=== PATIENT | female | born 1970 | race Caucasian/White ===

== ENCOUNTER 2016-08-31 11:33 | Inpatient (IN) | payer MEDICAID ==
[~2016-08-31] VITALS: Ht 167.6 cm; Wt 76.1 kg
[2016-08-31 12:17] LABS: BASOPHILS 0 % (0-2); EOSINOPHILS 0.1 % (0-7); HEMATOCRIT 35.6 % (36.0-48.0); HEMOGLOBIN 12.8 g/dL (12-16); IMMATURE GRANULOCYTES 0.5 % (0-5); LYMPHOCYTES 7.4 % (15-50); MCH 35.9 pg (26.0-34.0); MCV 99.7 fL (80.0-100.0); MEAN PLATELET VOLUME 11.6 fL (7.4-10.4); PLATELET COUNT 106 10x3/uL (130-400); RBC 3.57 10x6/uL (4.00-5.40); RDW 11.3 % (11.5-14.5); WBC 7.8 10x3/uL (4.8-10.8)
[2016-08-31 12:49] LABS: ALBUMIN 4.4 g/dL (3.4-5.0); BILIRUBIN - TOTAL 5.16 mg/dL (0.2-1.3); CARBON DIOXIDE 22.8 mmol/L (21.0-32.0); CREATININE - SERUM 4.5 mg/dL (0.6-1.3); PROTEIN - SERUM 8.3 g/dL (6.4-8.2)
[2016-08-31 12:52] LABS: ANION GAP 22.3 mmol/L (8-16); POTASSIUM - SERUM 2.1 mmol/L (3.5-5.1)
[2016-08-31 13:43] LABS: CREATINE KINASE 1217 UL (21-215)
[2016-08-31 13:44] LABS: CKMB 17.1 U/L (0.0-3.6)
[2016-08-31 14:38] LABS: APPEARANCE TURBID (CLEAR); BILIRUBIN NEGATIVE (NEGATIVE); COLOR YELLOW (YELLOW); GLUCOSE NEGATIVE (NEGATIVE); KETONE NEGATIVE (NEGATIVE); LEUKOCYTE ESTERASE 2+ (NEGATIVE); NITRITE POSITIVE (NEGATIVE); PROTEIN 2+ mg/dL (NEGATIVE); RED CELLS - URINE 0-5 /hpf (0-5); SPECIFIC GRAVITY 1.015 (1.005-1.020)
[2016-08-31 14:39] LABS: BACTERIA MANY /hpf (NONE SEEN); EPITHELIAL CELLS 0-5 /hpf (0-5); GRANULAR CAST 0-5 /lpf (NONE SEEN); HYALINE CAST OCC /lpf (NONE SEEN); MUCUS <1+ /lpf (NONE SEEN)
[2016-08-31 14:46] LABS: UDS - AMPHET NEGATIVE QUAL (NEGATIVE); UDS - BARB NEGATIVE QUAL (NEGATIVE); UDS - BENZO NEGATIVE QUAL (NEGATIVE); UDS - COCAINE NEGATIVE QUAL (NEGATIVE); UDS - METH NEGATIVE QUAL (NEGATIVE); UDS - OPIATE NEGATIVE QUAL (NEGATIVE); UDS - PCP NEGATIVE QUAL (NEGATIVE); UDS - THC NEGATIVE QUAL (NEGATIVE)
[2016-08-31] MEDS ORDERED: PROTONIX40 MG PO (15:31)
[2016-08-31] MEDS ORDERED: LEXAPRO10 MG PO (15:31)
[2016-08-31] MEDS ORDERED: KLONOPIN0.5 MG PO (15:32)
[2016-08-31] MEDS ORDERED: ZOFRAN ODT4 MG/UDTAB PO (15:33)
[2016-08-31 16:15] LABS: MAGNESIUM - SERUM 1.2 mg/dL (1.8-2.4); PHOSPHOROUS 1.7 mg/dL (2.5-4.9)
[2016-08-31 16:19] VITALS: BP 127/81; BMI 25.5
--- NOTE | 2016-08-31 16:46 | NUR ---
PT AOX4 RESP EVEN AND NONLABORED ON ROOM AIR PT DENIES NEEDS AT THIS TIME FRIEND AT BEDSIDE. IV TO LEFT FOREARM PATENT AND INTACT PT HERE FOR FALL FOR THIS VISIT. PT HANDS TREMORS CONTINUALLY AT THIS TIME. SRX2 BED AT LOWEST SETTING CALL LIGHT WITHIN REACH WILL CONTINUE TO MONITOR
--- NOTE | 2016-08-31 19:00 | NUR ---
PATIENT SITTING UP IN BED WATCHING TV. HOB 40 DEGREES. PATIENT IS AWAKE AND ALERT BUT SLIGHTLY CONFUSED. RR EVEN AND UNLABORED. 0 S/S OF DISTRESS. STATES PAIN IS A 10/10 IN HER HEAD AND NECK. SHE STATES THAT SHE FELL AND "HIT HER HEAD HARD." NO IMAGING HAS BEEN DONE ON HEAD OR NECK. IV TO RIGHT FA PATENT WITH NO REDNESS OR SWELLING. TELEMETRY ON. SCD'S ON. DAVID MAT ON. SRX2. BED LOW. CALL LIGHT WITHIN REACH.
[2016-08-31 20:00] VITALS: BP 126/79
--- NOTE | 2016-08-31 20:30 | NUR ---
SPOKE WITH DR. VAZ. NOTIFIED HER OF PATIENT'S PAIN DUE TO FALL. CT'S ORDERED.
--- NOTE | 2016-08-31 22:10 | NUR ---
PATIENT TAKEN DOWN TO HAVE CT DONE, NOW BACK IN BED. NIGHTTIME MEDS GIVEN. PATIENT BEGINNING TO BECOME A BIT RESTLESS AND TREMORS GETTING WORSE. ATIVAN GIVEN PER ORDER. PATIENT'S BOYFRIEND STATED THAT HE WOULD STAY WITH PATIENT BECAUSE SHE HAS BEEN TRYING TO GET OUT OF BED. 20 MEQ KCL PO, 400 MG MAG PO, AND 1 PACKET NEUTRAPHOS GIVEN PER PROTOCOL.
[2016-09-01] VITALS (7 sets, daily range): BP systolic 101–139; BP diastolic 61–102; Ht 167.6 cm; Wt 76.1 kg
--- NOTE | 2016-09-01 00:05 | NUR ---
PATIENT BECOMING INCREASINGLY RESTLESS AND CONFUSED. SHE IS HALLUCINATING AND STILL ATTEMPTING TO GET OUT OF BED. ATIVAN GIVEN PER ORDER. WILL CONTINUE TO MONITOR.
--- NOTE | 2016-09-01 01:50 | NUR ---
PATIENT VERY RESTLESS AND NOW AGITATED. BOYFRIEND AND MANDARIN TEACHER CANNOT KEEP HER IN THE BED. SHE IS PULLING OFF HER TELEMETRY AND STATING THAT SHE "IS GOING HOME." SPOKE WITH DR. GONZALEZ IN ER. ONE TIME ORDER 50 MG PO LIBRIUM AND 2MG IV ATIVAN GIVEN. WILL REASSESS.
--- NOTE | 2016-09-01 03:00 | NUR ---
PATIENT SLEEPING WITH NO DISTRESS NOTED. ADDITIONAL DOSES OF MAG, KCL, AND PHOS NOT GIVEN BECAUSE PATIENT FINALLY RESTING AND DID NOT WANT TO DISTURB. WILL RESTART TREATMENT PER PROTOCOL IN AM. HAVE NOT BEEN ABLE TO COLLECT URINE CULTURE BECAUSE EVERY TIME PATIENT VOIDED, SHE HAD LOOSE BM IN HAT. WILL PASS ON TO DAY SHIFT.
[2016-09-01 04:30] LABS: BASOPHILS 0.2 % (0-2); EOSINOPHILS 1.8 % (0-7); HEMOGLOBIN 10.4 g/dL (12-16); IMMATURE GRANULOCYTES 0.5 % (0-5); LYMPHOCYTES 23.4 % (15-50); MCH 36.2 pg (26.0-34.0); MCHC 36.6 g/dL (31.0-37.0); MEAN PLATELET VOLUME 11.2 fL (7.4-10.4); MONOCYTES 16.2 % (2-11); NEUTROPHILS 57.9 % (40-80); PLATELET COUNT 88 10x3/uL (130-400); RBC 2.87 10x6/uL (4.00-5.40); RDW 11.3 % (11.5-14.5)
[2016-09-01 04:33] LABS: HEMATOCRIT 28.4 % (36.0-48.0); WBC 5.7 10x3/uL (4.8-10.8)
[2016-09-01 06:01] LABS: PLATELET ESTIMATE DECREASED
[2016-09-01 06:27] LABS: ALBUMIN 3.4 g/dL (3.4-5.0); BILIRUBIN - TOTAL 4.06 mg/dL (0.2-1.3); CARBON DIOXIDE 22.6 mmol/L (21.0-32.0); CREATININE - SERUM 3.5 mg/dL (0.6-1.3); PROTEIN - SERUM 6.3 g/dL (6.4-8.2)
[2016-09-01 06:29] LABS: ANION GAP 17.5 mmol/L (8-16); MAGNESIUM - SERUM 2.2 mg/dL (1.8-2.4)
[2016-09-01 06:31] LABS: PHOSPHOROUS 0.8 mg/dL (2.5-4.9); POTASSIUM - SERUM 2.1 mmol/L (3.5-5.1)
--- NOTE | 2016-09-01 07:50 | NUR ---
PATIENT AWAKE AND AGITATED AGAIN, ATTEMPTING TO GET OUT OF BED. ATIVAN GIVEN. MORNING MED GIVEN. ELECTROLYTES TREATED PER PROTOCOL.
--- NOTE | 2016-09-01 08:00 | NUR ---
ASSESSMENT PER FLOW SHEET.PT WITHOUT DISTRESS,BUT VERY CONFUSED.FALL PREVENTION IN PLACE.CALL LIGHT IN REACH
--- NOTE | 2016-09-01 09:30 | NUR ---
PT VERY ANXIOUS AND TRYING TO GET OUT OF BED.FALL PREVENTION IN PLACE.MEDS ORDERED PER MAR.DOOR OPEN
--- NOTE | 2016-09-01 12:41 | NUR ---
MORE CALM.FAMILY HAS BEEN TO VISIT.DOOR OPEN TO MONITOR
--- NOTE | 2016-09-01 14:49 | NUR ---
FINALLY RESTING WITHOUT DISTRESS.DOOR OPEN TO MONITOR.DAVID MAT IN PLACE AND FUNCTIONING.
--- NOTE | 2016-09-01 16:09 | NUR ---
AWAKENS INT,WITHOUT DISTRESS AT PRESENT.MONITOR FOR NEEDS
--- NOTE | 2016-09-01 17:58 | NUR ---
HAS EATEN DINNER AND IS AWAKE.MORE CALM THIS AFTERNOON. FALL PREVENTION IN PLACE.DOOR OPEN.CONT PLAN OF CARE
--- NOTE | 2016-09-01 18:25 | NUR ---
PT ANXIOUS AND OUT OF BED.BED ALARM SOUNDING.PT FOUND IN FLOOR. IV PULLED OUT WITH CATH INTACT.
--- NOTE | 2016-09-01 18:45 | NUR ---
IV RESITED TO RIGHT WRIST X1 STICK ,20 G USING ASEPTIC TECH.PT HAS BEEN CLEANED AND BACK TO BED.SCRAPE NOTED TO RIGHT BACK.DR VAZ CALLED.
--- NOTE | 2016-09-01 19:35 | NUR ---
FAMILY BACK TO UNIT.FAMILY AWARE OF FALL.
[2016-09-02] VITALS: BP 117/77
[2016-09-02 02:09] LABS: ANION GAP 14.3 mmol/L (8-16); BILIRUBIN - TOTAL 3.19 mg/dL (0.2-1.3); CALCIUM 8.1 mg/dL (8.5-10.1); CARBON DIOXIDE 24.4 mmol/L (21.0-32.0); MAGNESIUM - SERUM 1.9 mg/dL (1.8-2.4); PROTEIN - SERUM 5.9 g/dL (6.4-8.2)
[2016-09-02 02:20] LABS: CREATININE - SERUM 1.8 mg/dL (0.6-1.3); PHOSPHOROUS 1.7 mg/dL (2.5-4.9)
[2016-09-02 02:21] LABS: POTASSIUM - SERUM 2.7 mmol/L (3.5-5.1)
[2016-09-02 02:24] LABS: BASOPHILS 0.9 % (0-2); EOSINOPHILS 3.5 % (0-7); HEMATOCRIT 29.1 % (36.0-48.0); HEMOGLOBIN 10.2 g/dL (12-16); IMMATURE GRANULOCYTES 0.9 % (0-5); LYMPHOCYTES 33.1 % (15-50); MCH 35.3 pg (26.0-34.0); MCHC 35.1 g/dL (31.0-37.0); MCV 100.7 fL (80.0-100.0); MEAN PLATELET VOLUME 10.6 fL (7.4-10.4); MONOCYTES 15.6 % (2-11); PLATELET COUNT 103 10x3/uL (130-400); RBC 2.89 10x6/uL (4.00-5.40); RDW 11.5 % (11.5-14.5); WBC 4.2 10x3/uL (4.8-10.8)
[2016-09-02 04:13] VITALS: BP 116/72
--- NOTE | 2016-09-02 07:45 | NUR ---
DAUGHTER AT BEDSIDE, DENIES NEEDS, BED LOWEST POSITION, CALL LIGHTI N LOUANN, WILL CONTINUE TO MONITOR
[2016-09-02 08:23] VITALS: BP 124/83
--- NOTE | 2016-09-02 10:20 | NUR ---
PT HERE FOR ETOH ABUSE PT DENIES NEEDS AT THIS TIME. IV TO RIGHT WRIST PATENT AND INTACT SRX2 BED IN LOWEST SETTING CALL LIGHT WITHIN REACH WILL CONTINUE TO MONITOR
[2016-09-02 12:55] VITALS: BP 127/70
[2016-09-02 16:14] VITALS: BP 96/62
[2016-09-02 19:00] VITALS: BP 117/77
--- NOTE | 2016-09-02 20:00 | NUR ---
REC'D IN BED AWAKE AND ALERT. RESP EVEN AND UNLABORED WITH NO DISTRESS NOTED. CAN VOICE NEEDS AND WANTS. NO C/O NOTED OF YET THIS SHIFT. ASSESSMENT COMPLETED. C/L IN REACH AT BEDSIDE.
--- NOTE | 2016-09-03 02:00 | NUR ---
PT IN BED WITH NO DISTRESS AT THIS TIME. RESPIRATIONS ARE EVEN AND UNLABORED. SIDE RAILS X 2. BED IS LOW. CALL LIGHT IS WITHIN REACH. DAVID MAT IS ON.
[2016-09-03 04:00] VITALS: BP 97/63
[2016-09-03 04:54] LABS: BASOPHILS 0.9 % (0-2); EOSINOPHILS 3.7 % (0-7); HEMATOCRIT 29.7 % (36.0-48.0); HEMOGLOBIN 10.3 g/dL (12-16); IMMATURE GRANULOCYTES 2.9 % (0-5); LYMPHOCYTES 35.5 % (15-50); MCH 35.8 pg (26.0-34.0); MCHC 34.7 g/dL (31.0-37.0); MEAN PLATELET VOLUME 10.4 fL (7.4-10.4); MONOCYTES 17.1 % (2-11); NEUTROPHILS 39.9 % (40-80); RBC 2.88 10x6/uL (4.00-5.40); RDW 11.7 % (11.5-14.5); WBC 4.6 10x3/uL (4.8-10.8)
[2016-09-03 04:59] LABS: MCV 103.1 fL (80.0-100.0); PLATELET COUNT 152 10x3/uL (130-400)
[2016-09-03 05:17] LABS: ALBUMIN 3.1 g/dL (3.4-5.0); ANION GAP 14.8 mmol/L (8-16); BILIRUBIN - TOTAL 2.4 mg/dL (0.2-1.3); CALCIUM 8.3 mg/dL (8.5-10.1); CARBON DIOXIDE 21.7 mmol/L (21.0-32.0); MAGNESIUM - SERUM 1.6 mg/dL (1.8-2.4); POTASSIUM - SERUM 3.5 mmol/L (3.5-5.1); PROTEIN - SERUM 5.9 g/dL (6.4-8.2)
[2016-09-03 05:19] LABS: CREATININE - SERUM 1.3 mg/dL (0.6-1.3); PHOSPHOROUS 1.2 mg/dL (2.5-4.9)
--- NOTE | 2016-09-03 05:48 | NUR ---
CONTINUE TO REST WELL THROUGH OUT THE NIGHT. DAUGHTER AT BEDSIDE. C/L IN REACH AT BEDSIDE.
--- NOTE | 2016-09-03 07:32 | NUR ---
A&O, DENIES NEEDS, CALL LIGHT IN REACH, WILL CONTINUE TO MONITOR
[2016-09-03 07:51] VITALS: BP 107/62
--- NOTE | 2016-09-03 10:02 | NUR ---
Patient Name: BAILEE SUNG Admission Status: ER Accout number: [id number] Admission Date: 08-31-2016 : 1970 Admission Diagnosis: Attending: PADMINI Current LOS: 3 Anticipated DC Date: 09-05-2016 Planned Disposition: Home Primary [place]: [place] [employer] [place] Discharge Planning Comments: CM MET WITH PATIENT REGARDING D/C NEEDS AND PLANS. PATIENT STATED HER FRIEND (EARLENE ALEXIS) WILL DRIVE HER HOME AT DISCHARGE. PATIENT STATED SHE HAS 7 STEPS W/RAILS TO ENTER HOME AND 1 FLIGHT W/RAILS INSIDE. PATIENT IS INDEPENDENT WITH HER CARE AND HAS A SHOWER CHAIR AT HOME. PATIENTS PCP IS DR. KAUR AND PHARMACY IS [facility] ON [address] [facility]. PATIENT REFUSED HOME HEALTH AT THIS TIME. CM WILL CONTINUE TO FOLLOW PATIENT WITH D/C NEEDS AND PLANS. PCP DR. NATASHA BULL ON [address] [facility] EARLENE ALEXIS (FRIEND) [phone] Water Tender: Zulma Mar Is the patient Alert and Oriented? Yes 0 * How many steps to enter\exit or inside your home? 7/1 FLIGHT 0 * PCP DR. KAUR 0 * Pharmacy [facility] [address] [facility] 0 * Preadmission Environment Home Alone 0 * ADLs Independent 0 * Equipment Shower Chair 0 * List name and contact numbers for known caregivers / representatives who currently or will assist patient after discharge: EARLENE ALEXIS (FRIEND) [phone] 0 * Community resources currently utilized None 0 * Additional services required to return to the preadmission environment? Yes 0 * Can the patient safely return to the preadmission environment? Yes 0 * Has this patient been hospitalized within the prior 30 days at any hospital? No 0 Grand Total: 0
--- NOTE | 2016-09-03 10:20 | NUR ---
PATIENT SITTING UP IN BED ALERT AND VISITING WITH GUEST. NO SIGNS OF DISTRESS NOTED. SIDE RAILS UP X2. BED IN LOW POSITION. CALL LIGHT IN REACH.
[2016-09-03 11:56] VITALS: BP 112/72
--- NOTE | 2016-09-03 13:54 | NUR ---
NUTRITION MONITORING AND EVAL. CHART REVIEWED. REG DIET WITH 25% INTAKE RECENT MEALS. WILL CONTINUE TO PROVIDE DIET, MONITOR PT PROGRESS. PT MAY BENEFIT FROM [facility]. RD FOLLOWING
[2016-09-03 16:13] VITALS: BP 115/72
[2016-09-03 18:00] VITALS: BP 106/65
--- NOTE | 2016-09-03 23:00 | NUR ---
REC'D PATIENT RESTING IN BED. NO DISTRESS NOTED. ALERT AND ORIENTED X4. STATED PAIN WAS "8/10". WILL ADMINISTER PM MEDS PRESCRIBED. DENIED FURTHER NEEDS AT THIS TIME. INSTRUCTED TO CALL IF NEEDED ANYTHING BED LOW, LOCKED, CALL LIGHT IN REACH.
[2016-09-04 04:00] VITALS: BP 103/64
[2016-09-04 05:04] LABS: HEMATOCRIT 29.5 % (36.0-48.0); MCH 35.7 pg (26.0-34.0); MCHC 33.9 g/dL (31.0-37.0); MEAN PLATELET VOLUME 10.2 fL (7.4-10.4); RDW 12.4 % (11.5-14.5); WBC 4.8 10x3/uL (4.8-10.8)
[2016-09-04 05:06] LABS: MCV 105.4 fL (80.0-100.0); PLATELET COUNT 187 10x3/uL (130-400)
[2016-09-04 05:42] LABS: ALBUMIN 2.8 g/dL (3.4-5.0); ANION GAP 13.6 mmol/L (8-16); BILIRUBIN - TOTAL 2.45 mg/dL (0.2-1.3); CALCIUM 8.1 mg/dL (8.5-10.1); CARBON DIOXIDE 23.8 mmol/L (21.0-32.0); MAGNESIUM - SERUM 1.8 mg/dL (1.8-2.4); PROTEIN - SERUM 5.5 g/dL (6.4-8.2)
[2016-09-04 06:34] LABS: CREATININE - SERUM 0.9 mg/dL (0.6-1.3); POTASSIUM - SERUM 4.4 mmol/L (3.5-5.1)
[2016-09-04 06:37] LABS: ANISOCYTOSIS OCC; BASOPHILS 1 % (0-2); EOSINOPHILS 5 % (0-7); HYPOCHROMASIA OCC; LYMPHOCYTES 35 % (15-50); MONOCYTES 13 % (2-11); NEUTROPHILS 43 % (40-80); PLATELET ESTIMATE NORMAL
--- NOTE | 2016-09-04 07:45 | NUR ---
ASSESSMENT PER FLOW SHEET.PT WITHOUT DISTRESS.FALL PREVENTION IN PLACE WITH DAVID MAT.DOOR OPEN TO MONITOR.CALL LIGHT IN REACH.
[2016-09-04 08:18] VITALS: BP 133/86
[2016-09-04 11:47] VITALS: BP 132/86
[2016-09-04] MEDS ORDERED: FOLIC ACID1 MG PO (13:58)
[2016-09-04] MEDS ORDERED: CHRONULAC30 ML PO (13:58)
[2016-09-04] MEDS ORDERED: THIAMINE HCL50 MG PO (13:58)
[2016-09-04] MEDS ORDERED: OMNICEF300 MG PO (13:59)
--- NOTE | 2016-09-04 14:10 | NUR ---
CM REASSESSMENT NOTE: PATIENT IS DISCHARGING TODAY HOME - REFUSED HOME HEALTH. PATIENT WAS GIVEN A LIST OF ALCOHOL TREATMENT OP AND IP FACILITIES HERE IN [place] ALONG WITH AN ALCOHOL BROCHURE WITH HOT LINE NUMBERS. PATIENTS DENISA (EARLENE ALEXIS) WILL DRIVE HER HOME TODAY.
--- NOTE | 2016-09-04 14:16 | NUR ---
IV PULLED OUT WITH CATH INTACT.PT IN BATHROOM.PT BACK TO BED
--- NOTE | 2016-09-04 15:29 | NUR ---
REMAINS WITHOUT DISTRESS.GOING TO DC HOME THIS AFTERNOON.CALL LIGHT IN REACH.POEY ON AND DOOR OPEN
--- NOTE | 2016-09-04 19:13 | NUR ---
REMAINS WITHOUT NEEDS,WITHOUT DISTRESS.CONT PLAN OF CARE
--- NOTE | 2016-09-04 19:24 | NUR ---
WILL DC WHEN HERE FOR TRANSPORT HOME.
--- NOTE | 2016-09-04 20:00 | NUR ---
PATIENT DISCHARGE TO HOME VIA PRIVATE VECHILE WITH . DISCHARGE INSTRUCTIONS GIVEN. PERSONAL BELONGINGS SENT HOME WIHT PATIENT.
== END 2016-09-04 20:06 | disposition home or self-care (01) | DRG 642 ==
LOC: D.ER 11:33 → OBSVTIME 14:21 → D.MS 14:21
PROVIDERS: Emergency Medicine; Internal Medicine Nephrology; Nurse Practitioner Acute Care; ADMIT Family Medicine
DX: E72.4 Disorders of ornithine metabolism (principal); N17.9 Acute kidney failure, unspecified; F10.230 Alcohol dependence with withdrawal, uncomplicated; N39.0 Urinary tract infection, site not specified; E86.0 Dehydration; E87.6 Hypokalemia; K70.0 Alcoholic fatty liver

== ENCOUNTER 2016-09-14 08:31 | Outpatient (CLI) | payer MEDICAID ==
[2016-09-01 12:54] VITALS: BMI 25.0
[~2016-09-14 08:31] MED LIST: CHRONULAC30 ML PO; FOLIC ACID1 MG PO; KLONOPIN0.5 MG PO; LEXAPRO10 MG PO; OMNICEF300 MG PO; PROTONIX40 MG PO; THIAMINE HCL50 MG PO; ZOFRAN ODT4 MG/UDTAB PO
== END 2016-09-14 13:20 ==
LOC: D.MAMMO 08:31
DX: Z12.31 Encounter for screening mammogram for malignant neoplasm of breast (principal)

== ENCOUNTER → 2016-10-19 16:50 | Outpatient (CLI) | payer MEDICAID ==
[2016-09-01 12:54] VITALS: BMI 25.0
== END | disposition home or self-care (01) ==
LOC: D.MAMMO 10:30
DX: R92.8 Other abnormal and inconclusive findings on diagnostic imaging of breast (principal)